=== PATIENT | female | born 1960 | race Caucasian/White ===

== ENCOUNTER → 2021-01-24 16:34 | Outpatient (CLI) | payer OTHER, SELFPAY ==
--- NOTE | 2021-01-24 | DI.MRI.S_ITS ---
PROCEDURE: MR KNEE LT WO CON INDICATIONS: pain in left knee TECHNIQUE: Noncontrast sagittal PD fast spin echo and T2 fast spin echo with fat saturation, sagittal 3-D FLASH with fat saturation; coronal T1 spin echo and PD fast spin echo with fat saturation, and axial PD fast spin echo with fat saturation through the knee. COMPARISON: [facility], MR, KNEE WITHOUT CONTRAST, 04/24/2015, 6:57. FINDINGS: Image quality: Excellent. Menisci: There is complex tearing of the medial meniscus with moderate degenerative tearing at the junction of the body and posterior horn. This includes a radial component involving the free edge as well as horizontally oriented longitudinal components involving the inferior articular surface. There is also slight peripheral extrusion of the medial meniscus. The meniscal root ligaments appear intact. The lateral meniscus appears intact. Cruciate ligaments: The anterior and posterior cruciate ligaments appear intact. Medial structures: The medial collateral ligament appears intact. The semimembranosus tendon insertions and meniscocapsular junction appear intact. Visualized portions of the pes anserinus tendons appear intact without associated bursal fluid collections. Lateral structures: The lateral collateral ligament, long and short heads of the biceps femoris tendon appear intact. The popliteus tendon appears intact. Iliotibial band appears normal. Anterior structures: The quadriceps and patellar tendons appear intact. Patellar alignment is normal. No femoral trochlear dysplasia or ventral trochlear prominence. No edema in the infrapatellar fat pad. Bones and cartilage: No bone marrow contusions or fractures. There is tricompartmental osteophytosis. Moderate cartilage thinning is demonstrated in the medial compartment with chondral fissuring associated with foci of subchondral edema as well as subchondral cystic change posteriorly along the medial tibial plateau. Mild superficial chondral fraying is demonstrated within the lateral compartment with mild cartilage thinning. Intraosseous ganglion cysts are also demonstrated in the proximal tibia adjacent to the PCL insertion. Mild cartilage thinning is also demonstrated in the patellofemoral compartment with superficial chondral fissuring medially. Joint space: There is a small joint effusion. There is also a small Bradshaw's cyst. Normal appearing synovial plicae are incidentally noted. IMPRESSION: 1. Complex tearing involving the body and posterior horn of the medial meniscus as described. There is slight peripheral extrusion of the medial meniscus but the meniscal root ligaments appear intact. 2. 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 3. Small joint effusion and small Bradshaw's cyst. Dictated by: Kobe Cruz M.D. on 01/25/2021 at 10:18 Approved by: Kobe Cruz M.D. on 01/25/2021 at 10:29
== END ==
PROVIDERS: Referring Provider Student in an Organized Health Care Education/Training Program; Visit Provider Student in an Organized Health Care Education/Training Program
DX: M25.562 Pain in left knee (principal); S83.232A Complex tear of medial meniscus, current injury, left knee, initial encounter; M25.462 Effusion, left knee; M71.22 Synovial cyst of popliteal space [Baker], left knee
CPT/HCPCS: 73721